=== PATIENT | male | born 1985 | race Caucasian/White ===

== ENCOUNTER 2019-10-15 10:00 | Day surgery (SDC) | payer OTHER ==
[~2019-10-15 10:00] MED LIST: CEFAZOLIN SODIUM IN 0.9 % NACL 2 GM/100 ML BAG IV ONE
[2019-10-15] MEDS ORDERED: LIDOCAINE 2% 10 ML MDV SUBQ ONE (10:01)
[2019-10-15] MEDS ORDERED: fentaNYL 100 MCG/2 ML VIAL IVP ONE (10:01)
[2019-10-15] MEDS ORDERED: PROPOFOL 200 MG/20 ML VIAL IVP ONE (10:01)
[2019-10-15] MEDS ORDERED: MIDAZOLAM 2 MG/2 ML VIAL IVP ONE (10:01)
[2019-10-15] MEDS ORDERED: LACTATED RINGERS 1,000 ML IV ONE ×9 (10:09→14:11)
--- NOTE | 2019-10-15 10:46 | ANESTHESIA ---
Pre-Anesthesia VS, & Labs - Diagnosis left knee ACL tear - Procedure left knee ACL reconstruction Vital Signs: Temp Pulse Resp BP Pulse Ox 36.7 C 87 16 146/100 H 98 10/15/19 10:10 10/15/19 10:10 10/15/19 10:10 10/15/19 10:10 10/15/19 10:10 Height 5 ft 9 in Weight (kg) 97.07 kg - NPO >8 hours Home Medications and Allergies Home Medications: Ambulatory Orders Multivitamin [One Daily Multivitamin] 1 each PO 10/05/19 Multivitamin [One Daily Multivitamin] 1 each PO 10/05/19 Allergies/Adverse Reactions: Allergies Allergy/AdvReac Type Severity Reaction Status Date / Time No Known Drug Allergies Allergy Verified 10/05/19 14:11 Anes History & Medical History - Anesthetic History Anesthesia Complications: reports: Post-Operative Nausea/Vomiting - Medical History Cardiovascular: reports: None Pulmonary: reports: None Gastrointestinal: reports: None Urinary: reports: None Neuro: reports: None Musculoskeletal: reports: None, Other Endocrine/Autoimmune: reports: None Blood Disorders: reports: None Skin: reports: None Smoking Status: Never smoker Psychosocial: reports: No issues indicated - Surgical History Orthopedic: Arthroscopic surgery Dermatologic: Other Exam General: Alert, Oriented x3, Cooperative, No acute distress Dental: WNL Mouth Openin Fingerbreadth Neck Mobility: Normal Mallampati classification: I Thyromental Distance: greater than 6 cm Respiratory: Lungs clear, Normal breath sounds, No respiratory distress Cardiovascular: Regular rate, Normal S1, Normal S2, No murmurs Mental/Cognitive Status: Alert/Oriented X3, Normal for patient Plan Anesthesia Type: General, Femoral Block (Left femoral nerve block post op.) Consent for Procedure(s) Verified and Reviewed: Yes Code Status: Attempt Resuscitation ASA classification: 1-Healthy patient Is this case an emergency?: No
[2019-10-15] MEDS ORDERED: SCOPOLAMINE PATCH TOP ONE (10:49)
[2019-10-15] MEDS ORDERED: GABAPENTIN 400 MG CAPSULE ONE (10:51)
[2019-10-15] MEDS ORDERED: CELECOXIB 100 MG CAPSULE PO ONE (10:51)
[2019-10-15] MEDS ORDERED: ACETAMINOPHEN 1,000 MG/100 ML 100 ML IV ONE (10:51)
[2019-10-15] MEDS ORDERED: EPINEPHrine 1 MG/ML AMP ONE (11:31)
[2019-10-15] MEDS ORDERED: BUPIVACAINE 0.25% PF 30 ML VIAL ONE (11:31)
[2019-10-15] MEDS ORDERED: BUPIVACAINE 0.25% PF 30 ML VIAL SUBQ ONE (13:09)
[2019-10-15] MEDS ORDERED: EPINEPHrine 1 MG/ML AMP IVP ONE (13:09)
[2019-10-15] MEDS ORDERED: EPINEPHrine 1 MG/ML AMP IR ONE (13:09)
[2019-10-15] MEDS ORDERED: ONDANSETRON 4 MG/2 ML VIAL IVP PRN (15:42)
[2019-10-15] MEDS ORDERED: oxyCODONE 5 MG TABLET PO PRN (15:42)
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
[2019-10-15] MEDS ORDERED: ONDANSETRON 4 MG/2 ML VIAL ONE (16:32)
[2019-10-15] MEDS ORDERED: oxyCODONE 5 MG TABLET ONE (16:50)
[2019-10-15 17:19] VITALS: BP 158/98
== END 2019-10-15 10:01 | disposition home or self-care (01) ==
LOC: SDS 10:00
PROVIDERS: ATTEND Orthopaedic Surgery
PROC: 0LBM0ZZ Excision of Left Upper Leg Tendon, Open Approach (ICD-10-PCS; 2019-10-15)
PROC: 0SQD4ZZ Repair Left Knee Joint, Percutaneous Endoscopic Approach (ICD-10-PCS; 2019-10-15)
PROC: 0MRP47Z Replacement of Left Knee Bursa and Ligament with Autologous Tissue Substitute, Percutaneous Endoscopic Approach (ICD-10-PCS; principal; 2019-10-15 11:45)
DX: S83.512A Sprain of anterior cruciate ligament of left knee, initial encounter (principal); S83.242A Other tear of medial meniscus, current injury, left knee, initial encounter